=== PATIENT | female | born 1955 | race Hispanic/Latino ===

== ENCOUNTER 2019-04-25 12:46 | Emergency (ER) | payer SELFPAY ==
--- NOTE | 2019-04-25 13:05 | Emergency Department Report ---
Blank Doc - Documentation Documentation: 64-year-old female that presents with right hip pain with radiation to right t high. Denies any injuries or trauma. This initial assessment/diagnostic orders/clinical plan/treatment(s) is/are subject to change based on patient's health status, clinical progression and re-assessment by fellow clinical providers in the ED. Further treatment and workup at subsequent clinical providers discretion. Patient/guardians urged not to elope from the ED as their condition may be serious if not clinically assessed and managed. Initial orders include: 1- Patient sent to [facility] for further evaluation and treatment 2- xrays
--- NOTE | 2019-04-25 13:54 | XRay Report ---
Right hip 2 views INDICATION / CLINICAL INFORMATION: hip pain. COMPARISON: None available. FINDINGS: BONES/JOINT(S): No acute fracture or subluxation. Moderate DJD in the right hip and mild DJD in the l eft hip. No aggressive appearing bone lesions. SOFT TISSUES: No significant abnormality. ADDITIONAL FINDINGS: None. Signer Name: Tyler Eckert MD Signed: 04/25/2019 1:50 PM Workstation Name: [id number]
--- NOTE | 2019-04-25 15:13 | Emergency Department Report ---
ED General Adult HPI - General Chief complaint: Extremity Problem,Nontraumatic Stated complaint: RT LEG PAIN/RT THIGH Time Seen by Provider: 04/25/19 13:03 Source: patient Mode of arrival: Ambulatory Limitations: No Limitations - History of Present Illness Initial comments: Patient is 64 years old female with history of hypertension and osteoarthritis. Patient presented to the ER complaining of right hip pain that radiated down to her thigh for 1 month. Patient stated that pain a little bit worse in the last 3-4 days. Patient denied any fever, chills, nausea or vomiting. No recent trauma. Patient found to have a blood pressure of 175/115. Patient stated that she is compliant with her losartan. Patient denied any headache, neck pain, chest pain, shortness of breath, weakness numbness or tingling sensation. - Related Data Previous Rx's Medication Instructions Recorded Last Taken Type HYDROcodone/APAP 5-325 [[place] 1 each PO Q6HR PRN #20 tablet 06/25/15 Unknown Rx 5/325] Ondansetron [Zofran TAB] 4 mg PO Q8HR PRN #10 tablet 06/25/15 Unknown Rx Sulfamethoxazole/Trimethoprim 1 each PO BID #20 tablet 06/25/15 Unknown Rx [Bactrim DS TAB] Clindamycin [Clindamycin CAP] 300 mg PO BID #14 capsule 06/29/15 Unknown Rx Allergies Allergy/AdvReac Type Severity Reaction Status Date / Time No Known Allergies Allergy Verified 06/26/15 11:39 ED Review of Systems ROS: Stated complaint: RT LEG PAIN/RT THIGH Other details as noted in HPI Comment: All other systems reviewed and negative Constitutional: denies: chills, fever Respiratory: denies: cough, shortness of breath, SOB with exertion Cardiovascular: denies: chest pain, palpitations Gastrointestinal: denies: abdominal pain, nausea, vomiting Musculoskeletal: arthralgia. denies: back pain Neurological: denies: headache, weakness, numbness, paresthesias, confusion, abnormal gait ED Past Medical Hx - Past Medical History Hx Hypertension: Yes - Surgical History Additional Surgical History: TONSILLECTOMY. TUBAL LIGATION. BLADDER TACK - Social History Smoking Status: Never Smoker Substance Use Type: None - Medications Home Medications: Home Medications Medication Instructions Recorded Confirmed Last Taken Type HYDROcodone/APAP 5-325 [[place] 1 each PO Q6HR PRN #20 tablet 06/25/15 Unknown Rx 5/325] Ondansetron [Zofran TAB] 4 mg PO Q8HR PRN #10 tablet 06/25/15 Unknown Rx Sulfamethoxazole/Trimethoprim 1 each PO BID #20 tablet 06/25/15 Unknown Rx [Bactrim DS TAB] Clindamycin [Clindamycin CAP] 300 mg PO BID #14 capsule 06/29/15 Unknown Rx ED Physical Exam - General Limitations: No Limitations General appearance: alert, in no apparent distress - Head Head exam: Present: atraumatic, normocephalic, normal inspection - Eye Eye exam: Present: normal appearance - ENT ENT exam: Present: normal exam, normal orophraynx, mucous membranes moist - Neck Neck exam: Present: normal inspection, full ROM. Absent: tenderness, meningismus, lymphadenopathy, thyromegaly - Respiratory Respiratory exam: Present: normal lung sounds bilaterally - Cardiovascular Cardiovascular Exam: Present: regular rate, normal rhythm, normal heart sounds - GI/Abdominal GI/Abdominal exam: Present: soft, normal bowel sounds. Absent: distended, tenderness, guarding, rebound, rigid, organomegaly, mass, bruit, pulsatile mass, hernia - Extremities Exam Extremities exam: Present: normal inspection, full ROM, normal capillary refill. Absent: pedal edema, calf tenderness - Back Exam Back exam: Present: normal inspection, full ROM. Absent: CVA tenderness (R), CVA tenderness (L), muscle spasm, paraspinal tenderness, vertebral tenderness - Neurological Exam Neurological exam: Present: alert, oriented X3, CN II-XII intact, normal gait, reflexes normal - Psychiatric Psychiatric exam: Present: normal mood - Skin Skin exam: Present: warm, intact, normal color ED Course Vital Signs 04/25/19 13:03 Temperature 98.5 F Pulse Rate 90 Respiratory 17 Rate Blood Pressure 175/115 O2 Sat by Pulse 97 Oximetry ED Medical Decision Making - Lab Data Result diagrams: 04/25/19 15:33 04/25/19 15:33 - Radiology Data Radiology results: report reviewed - Medical Decision Making Patient is 64 years old female with history of hypertension and osteoarthritis. Patient presented to the ER complaining of right hip pain that radiated down to her thigh for 1 month. Patient stated that pain a little bit worse in the last 3-4 days. Patient denied any fever, chills, nausea or vomiting. No recent trau ma. Patient found to have a blood pressure of 175/115. Patient stated that she is compliant with her losartan. Patient denied any headache, neck pain, chest pain, shortness of breath, weakness numbness or tingling sensation. Labs reviewed and is unremarkable. Right hip x-ray showed osteoarthritis no acute finding. Patient given a prescription for Ultram and advised to follow-up with her primary care physician in the next 2-3 days and to return to the ER if symptoms are not improved. Critical care attestation.: If time is entered above; I have spent that time in minutes in the direct care of this critically ill patient, excluding procedure time. ED Disposition Clinical Impression: Hip pain, right, Hypertension Disposition: - TO HOME OR SELFCARE Is pt being admited?: No Condition: Stable Instructions: Hypertension (ED), Arthralgia (ED), Osteoarthritis (ED) Referrals: PRIMARY CARE, [Referring] - 3-5 Days
[2019-04-25 15:44] LABS: Basophils % (Auto) 0.6 % (0.0-1.8); Eosinophils # (Auto) 0.2 K/mm3 (0.0-0.4); Eosinophils % (Auto) 2.4 % (0.0-4.3); Hematocrit 40.3 % (30.3-42.9); Hemoglobin 13.4 gm/dl (10.1-14.3); Lymphocytes # (Auto) 1.7 K/mm3 (1.2-5.4); Lymphocytes % (Auto) 20.6 % (13.4-35.0); Mean Corpuscular HGB Conc 33 % (30-34); Mean Corpuscular Volume 90 fl (79-97); Monocytes # (Auto) 0.6 K/mm3 (0.0-0.8); Monocytes % (Auto) 7.4 % (0.0-7.3); Platelet Count 252 K/mm3 (140-440); Red Blood Count 4.48 M/mm3 (3.65-5.03); Red Cell Distribution Width 13.7 % (13.2-15.2)
[2019-04-25 16:04] LABS: BUN/Creatinine Ratio 19; Blood Urea Nitrogen 13 mg/dL (7-17); Calcium 8.8 mg/dL (8.4-10.2); Hemolysis Index 34
[2019-04-25 17:02] VITALS: BP 184/105
== END 2019-04-25 16:59 | disposition home or self-care (01) ==
LOC: ED 12:46
DX: M25.551 Pain in right hip (principal); I10 Essential (primary) hypertension; Z90.89 Acquired absence of other organs; Z98.51 Tubal ligation status; Z79.899 Other long term (current) drug therapy; Z98.890 Other specified postprocedural states
CPT/HCPCS: 36415; 80048; 85025